=== PATIENT | female | born 1950 | race African-American/Black ===

== ENCOUNTER → 2022-05-18 | Emergency (ER) | payer OTHER ==
[~2022-05-18] VITALS: Ht 160 cm; Wt 65.8 kg
[~2022-05-18] MED LIST: AMLODIPINE BESYL5 MG PO; ATORVASTATIN CA20 MG PO; ST. JOSEPH ASPI81 M2 PO
== END | disposition left against medical advice (07) ==
LOC: ER 18:21
DX: R30.0 Dysuria (principal)